=== PATIENT | male | born 1955 | race Caucasian/White ===

== ENCOUNTER 2018-11-09 07:46 | Observation (INO) | payer BC, MEDICARE ==
[2018-11-09] MEDS ORDERED: Pantoprazole 40 MG VIAL ONE (08:41)
[2018-11-09 08:57] LABS: #Lymphocytes 0.8 thou/uL (1.20-3.40); #Monocytes 0.2 thou/uL (0.11-0.59); %Basophils 0.5 % (0.0-1.0); %Eosinophils 0.7 % (0.0-10.0); %Lymphocytes 20.4 % (21.0-51.0); %Neutrophils 73.4 % (42.0-75.0); Hemoglobin 13.7 g/dL (14.0-18.0); Mean Corpuscular HGB CONC 33.4 g/dL (32.0-36.0); Mean Corpuscular Hemoglobin 30.7 pg (27.0-31.0); Mean Corpuscular Volume 92.1 fL (78.0-98.0); Mean Platelet Volume 7.9 fL (7.4-10.4); Platelet Count 81 thou/uL (130-400); Platelet Morphology Comment Appears Decreased; RBC Distribution Width 13.7 % (11.5-14.5); Red Blood Cell (RBC) Count 4.45 mill/uL (4.70-6.10); White Blood Cell (WBC) Count 4.1 thou/uL (4.8-10.8)
[2018-11-09 08:58] LABS: ALT (SGPT) 33 U/L (8-55); AST (SGOT) 43 U/L (5-34); Albumin 3.8 g/dL (3.4-4.8); Alkaline Phosphatase 98 U/L (40-150); Anion Gap 13 mmol/L (10-20); BUN (Urea Nitrogen) 19 mg/dL (8.4-25.7); Bilirubin, Total 2.2 mg/dL (0.2-1.2); Calc. Creatinine Clearance 0 mL/min (70-130); Calcium 8.6 mg/dL (7.8-10.44); Carbon Dioxide 22 mmol/L (23-31); Chloride 107 mmol/L (98-107); Estimated GFR-MDRD Greater than 90; Globulin 2.5 g/dL (2.4-3.5); Glucose 114 mg/dL (80-115); MDiff Complete? YES; Potassium 3.5 mmol/L (3.5-5.1); Protein, Total 6.3 g/dL (5.8-8.1); Sodium 138 mmol/L (136-145)
[2018-11-09] MEDS ORDERED: Pantoprazole 80 MG in Sodium Chloride 0.9% 100 ML IVP SCH (09:30)
[2018-11-09 09:59] LABS: INR-International Normal Ratio 1.2; PTT 30.7 SEC (22.9-36.1); Prothrombin Time 15.5 SEC (12.0-14.7)
[2018-11-09] MEDS ORDERED: Ondansetron ODT 4 MG TAB PO PRN (11:32)
[2018-11-09] MEDS ORDERED: Ondansetron PF 4 MG/2 ML Vial IVP PRN (11:32)
[2018-11-09] MEDS ORDERED: Benzonatate 100 MG CAP PO PRN (11:34)
[2018-11-09] MEDS ORDERED: Acetaminophen 325 MG TAB PO PRN (11:34)
[2018-11-09] MEDS ORDERED: Sodium Chloride 0.65% Nasal 44 ML BOT EA NARE PRN (11:34)
[2018-11-09] MEDS ORDERED: hydrALAZINE 20 MG/ML VIAL SLOW IVP PRN (11:34)
[2018-11-09] MEDS ORDERED: Acetaminophen 650 MG Suppository PR PRN (11:34)
[2018-11-09 11:40] VITALS: BMI 28.4
--- NOTE | 2018-11-09 12:28 | HP ---
CHIEF COMPLAINT: Blood in the colostomy bag. PRIMARY CARE PHYSICIAN: Kev Churchill MD. PRIMARY MICROBIOLOGY LABORATORY MANAGER: Dr. Duncan. HISTORY OF PRESENTING ILLNESS: Mr. Richards is a very pleasant 63-year-old male with history of coronary artery disease, status post stenting in 2014, as well as history of colon cancer multiple years ago, status post colostomy by Dr. Gee, who presented to the emergency room with above-mentioned complaint. History was mainly obtained by the patient himself, and electronical medical records have been reviewed. Case has been discussed with admitting ER physician. Mr. Richards reports that he had a colonoscopy last year by Dr. Duncan, and everything was found to be within normal limits. He denies having this much bleeding in the colostomy bag ever. He denies being on any blood thinners except for aspirin, which he has not taken for the last 2 days. He reports that he has 4 or 5 bags full of blood without any stools in the bag overnight and 1 or 2 this morning as well. He feels a little bit dizzy, but denies any diarrhea, nausea, or vomiting. He has not had any abdominal pain either. No changes in the appetite. No recent illnesses or sick contacts. No fever or chills. Denies any chest pain or shortness of breath either. In the emergency room, he was hemodynamically stable. He was a little bit tachycardic with his heart rate in the 103 to 104 ranges. Hemoglobin was 13.7, which seems to be at his baseline. He was started on Protonix drip and is now being admitted to the hospital on the observation status for GI bleed in the colostomy. The patient reports that Dr. Gee, his surgeon, has seen him briefly in the emergency room, and he was told that it is not a surgical case. PAST MEDICAL HISTORY: 1. History of colon cancer, status post colostomy, 12 or 15 years ago. 2. Hypertension. 3. Coronary artery disease, status post stenting in September 2015. PAST SURGICAL HISTORY: 1. Coronary artery stenting. 2. Colon cancer surgery with colostomy. 3. Right ACL repair. SOCIAL HISTORY: He is and lives with his . No history of drug, tobacco, or alcohol abuse. ALLERGIES: NO KNOWN MEDICATION ALLERGIES. FAMILY HISTORY: No significant family history of premature coronary artery disease. HOME MEDICATIONS: Include: 1. Aspirin 81 mg daily. 2. Atorvastatin 40 mg daily. 3. Carvedilol 12.5 mg p.o. b.i.d. 4. Lisinopril 10 mg daily. REVIEW OF SYSTEMS: A 12-point review of systems was done and is negative except for those mentioned in the History and Physical. LABORATORY DATA: A CBC shows WBCs 4.1, hemoglobin 13.7, hematocrit 41, and platelet count, low, at 81. His last platelet count done in September 2015 was also low at 73. His PT, PTT, and INR are within normal limits. Serum chemistry showed bicarb at 22, total bilirubin slightly elevated at 2.2, and AST at 43, otherwise unremarkable. PHYSICAL EXAMINATION: VITAL SIGNS: Upon presentation, blood pressure 130/105, pulse of 99, respirations 16, saturating 96% on room air, and temperature 98.1. GENERAL: No acute distress. Awake, alert, and oriented x3. HEENT: Mucous membrane is moist and pink. No oropharyngeal exudate or erythema. Head is normocephalic, atraumatic. Pupils are equal and reactive to light and accommodation. Extraocular movements intact. NECK: Supple without any lymphadenopathy, JVD, or bruit. CHEST: Clear to auscultation without any wheezing or rhonchi. Rhythm is regular without any murmurs, rubs, or gallops. ABDOMEN: Soft, nontender, and nondistended. His colostomy bag was emptied once in the emergency room and according to the nursing staff, he had a lot of blood in that bag. His stoma side shows about 4 to 5 cm horizontal opening with a clot to the entrance of the stoma. No erythema or swelling noted surrounding it. EXTREMITIES: Free of any cyanosis, clubbing, or edema. NEUROLOGICAL: Examination is nonfocal. SKIN: Free of any rashes or bruises. Feels warm and dry to touch. PSYCHIATRIC: Normal affect. IMPRESSION AND PLAN: 1. Gastrointestinal bleed. The patient has a total of about 4 to 5 colostomy bags, full of bright red blood. He did have a normal colonoscopy about 1 year ago. The source of this new bleeding is unclear at this time. We will continue him on Protonix drip and request consultation with Gastroenterology. Reportedly, he was seen by Dr. Gee in the emergency room, and no new recommendation was provided surgically. He is thankfully hemodynamically stable at this time. We will start him on gentle IV fluids and recheck H and H every few hours. Further management as per the recommendation of the GI Team. He will be kept n.p.o. for now. 2. History of coronary artery disease. We will hold his home medications until he was cleared to take oral intake by the GI Team. 3. History of hypertension: Start him on p.r.n. IV antihypertensives. 4. History of colon cancer, status post colostomy. 5. Deep venous thrombosis and gastrointestinal prophylaxis. He is on Protonix drip, and we will add SCDs. DISPOSITION: Mr. Richards is currently being admitted under observation status for GI bleed in the colostomy bag. He is hemodynamically stable with a stable H and H. Further management will depend upon his clinical course. If he becomes unstable, he can be changed to inpatient status later on. Job ID: [id number]
[2018-11-09] MEDS: Sodium Chloride 0.9% 1,000 ML IV SCH (12:58)
[2018-11-09 13:38] LABS: Hemoglobin 12.9 g/dL (14.0-18.0)
[2018-11-09] MEDS ORDERED: PROPOFOL 200 MG/20 ML VIAL ONE (13:43)
[2018-11-09] MEDS ORDERED: Lidocaine 1% PF 5 ML VIAL ONE (13:43)
[2018-11-09] MEDS ORDERED: Octreotide Acetate 1,250 MCG in Sodium Chloride 0.9% 250 ML 250 ML IVPB SCH (15:15)
[2018-11-09] MEDS ORDERED: cefTRIAXone\\ROCEPHIN 1 GM VIAL ONE (15:47)
[2018-11-09] MEDS ORDERED: Fentanyl 100 MCG/2 ML VIAL ONE (15:53)
[2018-11-09] MEDS ORDERED: Meperidine HCl/PF 25 MG/ML VIAL SLOW IVP PRN (16:52)
[2018-11-09] MEDS ORDERED: HYDROmorphone 2 MG/ML VIAL SLOW IVP PRN (16:52)
[2018-11-09] MEDS ORDERED: Promethazine HCl 25 MG/ML VIAL SLOW IVP PRN (16:52)
[2018-11-09] MEDS ORDERED: Promethazine HCl 25 MG/ML VIAL IM PRN (16:52)
[2018-11-09] MEDS ORDERED: Ondansetron HCl/PF 4 MG/2 ML Vial IVP PRN (16:52)
[2018-11-09] MEDS ORDERED: Sodium Chloride 0.9% 100 ML ONE (17:45)
[2018-11-09] MEDS: cefTRIAXone\\ROCEPHIN 1 GM in Sodium Chloride 0.9% 100 ML IVPB SCH (18:09)
--- NOTE | 2018-11-10 00:17 | OP ---
DATE OF PROCEDURE: 11/09/2018 PREPROCEDURE DIAGNOSES: 1. Gastrointestinal bleed from ostomy site. 2. History of colorectal cancer, status post resection with anorectal anastomosis, previous radiation therapy with stricturing with ultimately formation of a double-barrel loop transverse colostomy. 3. History of portal hypertension, cirrhosis, reportedly from chemotherapy treatments related to his colon cancer several years ago. He has had varices banded prophylactically as there were red antonio signs, but he has had no gross bleeding in the past. ANESTHESIA: TIVA. POSTPROCEDURE DIAGNOSES: 1. Grade 3 esophageal varices, two columns in the distal esophagus with red antonio signs, but no stigmata of recent or active bleeding. These were banded prophylactically with the red antonio signs present x2 with complete ablation. 2. Portal hypertensive gastropathy with slight oozing, but not much. I do not think this accounts for the patient's ostomy bleeding as that was more bright red and maroon. 3. Possible slight varices just below the GE junction along the greater curve side with no stigmata of bleeding. 4. Small erosion in the duodenal bulb, nonbleeding, white base. 5. A colostomy via his ostomy was performed down both the afferent and efferent limbs. The efferent limb was clear with no blood, bile, or stool. The afferent limb showed yellow stool, it has been about 4 cm. No blood. The tissue at the ostomy anastomosis to the skin is friable. There were some prominent veins or venules. There was no overt large varicose veins seen, but again, my main concern is this may have been a peristomal bleed from peristomal varices. RECOMMENDATIONS: 1. Continue IV octreotide. 2. Change IV Protonix to q.12 hours. 3. Continue IV Rocephin q.24 hours. 4. I will talk with Hepatology in [place] in regard to possible further evaluation and imaging to evaluate for possible peristomal varices that are not grossly obvious to the eye. DESCRIPTION OF PROCEDURE: The patient was informed of the risks, benefits, and possible complications of endoscopy including perforation, reaction to medication, and aspiration, and informed consent was obtained. The patient was brought to the endoscopy suite, where he was sedated in gradual fashion. Once he was comfortable, a bite block was placed into his oropharynx. The endoscope was advanced to the esophagus, stomach, and second and third portion of the duodenum and slowly removed. The esophagus was notable for grade 3 varices, two columns in the distal esophagus with red antonio signs, but no prominent clot or signs of active bleeding or blood. The scope was then advanced beyond this into the stomach. Retroflexed views revealed some GOV1 type varices very small, but no stigmata of bleeding, just below the GE junction. There was no isolated cardiac or gastric varices. There were some portal gastropathy, grade 3 that was not overly oozing, but is throughout most of the body of the stomach, cardia, and antrum. There were no bleeding sites identified. The duodenal bulb was entered and found to be normal except for one small 3 mm erosion white based on bleeding. No visible vessel present. The duodenum in the distal third and fourth portions were normal with no evidence of varices or blood seen. The scope was then brought back to the esophagus, then removed. Banding ligator kit applied and two bands placed over that two columns of varices in the distal esophagus with complete ablation. The scope was removed. The patient tolerated the procedure well with no complications. The patient was returned to the room and examination to the ostium with the ostomy bag off was performed. There was no overt large varices, but there were some vessels that were somewhat prominent in this area, mainly very superficially. The granulation tissue had a little bit of blood on it, but when we washed that off, there was no bleeding sites or vessels seen. The operative scope was then advanced through the ostomy into the efferent limb. Then, it was advanced about 20 cm with no contents of the lumen. No stigmata of bleeding. No varices, no inflammation and no portal colopathy. We then evaluated the afferent limb, the limb coming down from the small bowel and this had some formed stool, yellow with no blood and again no signs of varices or stigmata of bleeding. I suspect the bleeding that occurred in his ostomy bag came from the ostomy site itself and it could have been from his granulation tissue, but I am concerned it could be related to portal hypertension. Plan as above. Job ID: [id number]
[2018-11-10 05:58] LABS: Anion Gap 13 mmol/L (10-20); BUN (Urea Nitrogen) 13 mg/dL (8.4-25.7); Calc. Creatinine Clearance 111 mL/min (70-130); Calcium 7.8 mg/dL (7.8-10.44); Carbon Dioxide 21 mmol/L (23-31); Chloride 108 mmol/L (98-107); Estimated GFR-MDRD Greater than 90; Glucose 99 mg/dL (80-115); Potassium 3.7 mmol/L (3.5-5.1); Sodium 138 mmol/L (136-145)
[2018-11-10 06:41] LABS: #Lymphocytes 0.7 thou/uL (1.20-3.40); #Monocytes 0.2 thou/uL (0.11-0.59); #Neutrophils 1.2 thou/uL (1.40-6.50); %Basophils 0.8 % (0.0-1.0); %Eosinophils 1.7 % (0.0-10.0); %Lymphocytes 33.5 % (21.0-51.0); %Monocytes 8.4 % (0.0-10.0); %Neutrophils 55.6 % (42.0-75.0); Hemoglobin 11.7 g/dL (14.0-18.0); Mean Corpuscular HGB CONC 33.2 g/dL (32.0-36.0); Mean Corpuscular Volume 93.3 fL (78.0-98.0); Mean Platelet Volume 7.5 fL (7.4-10.4); Platelet Count 49 thou/uL (130-400); Platelet Morphology Comment Appears Decreased; RBC Distribution Width 13.6 % (11.5-14.5); RBC Morphology Normal; Red Blood Cell (RBC) Count 3.76 mill/uL (4.70-6.10); White Blood Cell (WBC) Count 2.2 thou/uL (4.8-10.8)
[2018-11-10] MEDS: Sodium Chloride 0.9% 1,000 ML IV SCH (07:18)
[2018-11-10] MEDS ORDERED: Aspirin Chewable 81 MG TAB PO SCH (09:00)
[2018-11-10] MEDS ORDERED: Carvedilol 6.25 MG TAB PO SCH (09:00)
[2018-11-10] MEDS ORDERED: Pantoprazole 40 MG VIAL IVP SCH (09:00)
[2018-11-10] MEDS ORDERED: Lisinopril 10 MG TAB PO SCH (09:00)
--- NOTE | 2018-11-10 10:19 | CT ---
CT OF THE ABDOMEN AND PELVIS WITH IV CONTRAST: Date: 11/10/18 INDICATION: History of colon cancer with drop in hemoglobin. COMPARISON: CT abdomen with and without contrast dated 04/05/06. FINDINGS: There are three new hypodensities within segment of the right hepatic lobe measuring 1.4, 0.7, and 1.1 cm, respectively, on images 21 and 22 of series 2. There has been development of a cirrhotic morphology to the liver. There is recanalization of the umb ilical vein. There are numerous varicosities within the paraesophageal region and perisplenic region. The spleen is enlarged. There is scattered free fluid within the abdomen consistent with ascites. There is a diverting loop colostomy involving the right upper quadrant of the abdomen. There are a fe w mildly prominent vessels within the stoma, likely related to mild parastomal varicosities. The visualized colon is largely decompressed with scattered diverticula. There is a colorectal anasto mosis within the lower abdomen which reveals no definite acute abnormality. There is some mild edema seen within the presacral region and mild soft tissue thickening which may be related to prior therap y changes. Bladder is largely decompressed. The small bowel is of normal caliber. There are moderate calcifications involving the abdominal aorta. No pathologically enlarged lymph nod es are seen within the upper abdomen or retroperitoneum. There is a mildly prominent third stage duod enal diverticulum measuring 3.5 cm on image 31 of series 2. There is a fat-containing umbilical hernia. No definite suspicious acute osseous abnormality is evident. IMPRESSION: 1. Cirrhotic morphology of the liver with findings of portal hypertension and mild ascites. 2. Mild parastomal varicosities involving the right upper quadrant loop colostomy without evidence o f active extravasation. 3. New hypodensities within the right hepatic lobe with a background of cirrhosis are nonspecific, b ut could reflect changes of hepatocellular carcinoma. A follow-up MRI of the abdomen utilizing a live r mass protocol is recommended. 4. Findings of colorectal anastomosis within the lower pelvis with presacral soft tissue thickening and edema may reflect sequelae of prior radiation therapy. Recommend correlation with patient's treat ment record. 5. Other findings as above. POS: CET
[2018-11-10 12:54] VITALS: BP 139/90; TEMP 98.3
[2018-11-10] MEDS: cefTRIAXone\\ROCEPHIN 1 GM in Sodium Chloride 0.9% 100 ML IVPB SCH (14:33)
[2018-11-10] MEDS ORDERED: ISOVUE-370 76%-LOCM 1 ML ONE (16:52)
--- NOTE | 2018-11-10 17:55 | PRG ---
DATE OF SERVICE: SUBJECTIVE: Mr. Richards has had no bleeding overnight. He is not eating because he wants to go home and eat at home. He did have a CAT scan with contrast today that showed cirrhotic morphology of the liver with recanalization of the umbilical vein and numerous varicosities in the paraesophageal region and perisplenic region. The spleen is enlarged. There is a little bit of free fluid consistent with ascites, but no large cavities. He had a diverting loop ostomy of right upper quadrant where the colon is and there were some mild prominent vessels within the stoma, likely mild parastomal varicosities. The colon was otherwise decompressed. There is some thickening of the sigmoid colon consistent with previous radiation therapy. The small bowel is normal and there was no active bleeding seen on that study. Hemoglobin has been stable today. It was 13.7 at 8 a.m. yesterday, 12.9 yesterday at 1300, and it was 11.7 this morning. He has no fever or chills. No nausea or vomiting. We did band 2 columns of grade 3 varices with red antonio sign in his esophagus, but they were not the source of bleeding. He also had some portal gastropathy. OBJECTIVE: GENERAL: He is alert and oriented to person, place, and time. VITAL SIGNS: Temperature is 98.7, pulse 73, and blood pressure 139/90. LUNGS: Clear. ABDOMEN: Soft and nontender. There is slight fluid wave. No shifting dullness. LABORATORY DATA: White count 3.2, hemoglobin 11.7, and platelet count 49,000. INR was 1.2 yesterday. Today, BUN and creatinine are 13 and 0.82. Sodium 139 and potassium 3.7. ASSESSMENT: 1. Gastrointestinal bleed, likely from parastomal varices. It has resolved. I have talked with Dr. Smith's fellow at the [facility] at [facility] and she would be willing to see him next week to discuss more definitive therapy, would that be embolization or TIPS. He wants to go home. I have counseled him in regard to bleeding risk and if he has any bleeding, he will need to return. I have told him to hold pressure at the ostomy site until he does return. In the meantime, we are going to place him on some Protonix once a day. We are going to increase his carvedilol to 6.25 mg b.i.d. and we will continue his other home medications. Stop his baby aspirin and stop his Advil PM. 2. He did have 3 small lesions in the liver, hypodense, all less than 1.7 cm in size. He states that they were 1.4, 0.7, and 1.1 cm in the right lower lobe. He notes that these had been noted previously at [facility] and had been followed. He did have a normal AFP in April of 2018 and a normal ultrasound then, and I have explained to him that this will need to be followed with a three phase imaging of the liver with hepatoma protocol and he understands that. PLAN: We will discharge him on the increased dose of carvedilol, PPI, and 5 more days of Levaquin for SBP prophylaxis and amount of the GI bleed. He has Dr. Smith's phone number and he will call them tomorrow and get that arranged. He has my phone number if he has further bleeding. I have asked him to stand a low-sodium diet. Otherwise, resume his home medications. His prescriptions have been called in. Job ID: [id number]
--- NOTE | 2018-11-10 18:03 | DIS ---
DATE OF ADMISSION: 11/09/2018 DATE OF DISCHARGE: 11/10/2018 CONDITION: At the time of discharge, stable and improved. DISCHARGE DIAGNOSES: 1. Bleeding from the colostomy site, likely due to varices. 2. History of colorectal cancer, status post resection and anorectal anastomosis, radiation therapy and colostomy. 3. 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 4. Hypertension. 5. Coronary artery disease. DISCHARGE MEDICATIONS: Resume home medications as per the HPI. New medications as follows; 1. Protonix 40 mg daily. 2. Levofloxacin 500 mg daily for 7 more days. Home medications; 1. Coreg 6.25 p.o. b.i.d. 2. Lisinopril 10 mg daily. 3. Atorvastatin 40 mg daily. 4. Aspirin has been taken off. IN-HOUSE CONSULTATION: Gastroenterology, Dr. Jean. PROCEDURES DONE IN THE HOSPITAL: 1. EGD and ostomy scope. Findings included grade 3 esophageal varices, which were banded prophylactically, as well as portal hypertensive gastropathy with slight oozing. Possible slight varices just below the gastroesophageal junction. The colonoscopy via his ostomy site was also performed by Dr. Jean and though there was no obvious bleeding, but the skin was friable. No overt large varicose veins were seen, but the concern remains that he had a peristomal bleed from peristomal varices. 2. CT scan of the abdomen and pelvis, which shows cirrhosis of the liver with portal hypertension, mild ascites, and mild parastomal varicosities involving the right upper quadrant loop colostomy without evidence of active extravasation. New hypodensities within the right hepatic lobe were seen, which could reflect changes of hepatocellular carcinoma. Colorectal anastomosis had some thickening and edema, which may reflect sequelae of prior radiation therapy. HISTORY OF PRESENTING ILLNESS: Mr. Richards is a very pleasant 63-year-old male with history of colon cancer about 12 years ago, status post colostomy, who is a patient of [facility], who presented after he started to notice multiple colostomy bags full of bright red blood. He had some dizziness associated with it and presented to the ER. His hemoglobin upon presentation was stable at 13.7, and he was himself stable as well. He was noticed to have low platelet count of 81, which seems to be chronic for him. Gastroenterology was consulted. Please see H and P for details. HOSPITAL COURSE: Dr. Jean saw the patient. His bleeding stopped spontaneously. He was started on Protonix drip initially and octreotide drip, and prophylactic Rocephin was added by Dr. Jean. He underwent a scope as above, followed by a CT scan. He was very eager to go and his hemoglobin and hematocrit were stable, and was cleared by Dr. Jean as no further procedures were required during hospitalization. He has been strongly instructed by Dr. Jean to follow up with a transportation officer in [place] regarding further evaluation and imaging of possible peristomal varices. The patient would get this done in the outpatient setting. His discharge hemoglobin is 11.7. He is hemodynamically stable. He was seen and examined prior to discharge. His vital signs are stable. Blood pressure 139/90, heart rate 73. No acute distress. Colostomy bag has soft, formed brown stool without any evidence of blood in it. The patient will be discharged. Medications were reconciled, and prescription for Levaquin and Protonix was given to him by Dr. Jean. He was also taken off his aspirin by Dr. Jean. He will follow up with Dr. Claude Duncan in the GI clinic in the outpatient setting, who is his primary parts counter associate, as well as with his primary care physician. PRIMARY CARE PHYSICIAN: Dr. Kev Churchill. Job ID: [id number]
[2018-11-10] MEDS ORDERED: Atorvastatin Calcium 40 MG TAB PO SCH (21:00)
--- NOTE | 2018-11-11 06:31 | CON ---
DATE OF CONSULTATION: 11/09/2018 REASON FOR CONSULTATION: Bleeding in ostomy. HISTORY OF PRESENT ILLNESS: Mr. Berg is a 63-year-old gentleman, who has remote history of rectal cancer about 16 years ago. He had a resection at that time and radiation chemotherapy, but had recurrent strictures and bleeding from the anastomosis area and ultimately had a resection of that and then diverting colostomy. Intermittently, he has had some bleeding at the ostomy site, but yesterday evening, he noticed he is having some blood in the ostomy bag and it was pretty bright red, tend to clot, it fill about 5 bags, so he came into the hospital. He did not really feel weak or dizzy. His hemoglobin was 13.7 at 8:30 when he came in. His hemoglobin was 14 in 09/2015. His hemoglobin was 12.9 on 10/17/2018. His platelets are low at 81,000 and white counts are low at 41,000. He notes a history of cirrhosis related to his previous chemotherapy and he has had varices, which had been prophylactically banded by Dr. Duncan, it does not seem like there were any bleeding varices. This was done at the recommendation of MD Jade. His INR is 1.2. He denies any other complications of cirrhosis in the past such as ascites or encephalopathy. He does not recall having any bleeding varices. Presently, he has had no blood output, everything seems to have stopped since admission. He has no associated abdominal pain or cramps. Most recently, he had a colonoscopy last with Dr. Duncan and everything was found to be within normal limits. He has been taking aspirin, which he usually takes daily, but has not for 2 days, he had a little bit of bleeding couple days ago. He also takes Aleve PM once at night. He reports his last EGD was about 2 years ago when he had some banding of the varices in the esophagus. In the emergency room, he did have some tachycardia when he first presented with a pulse of 103 to 104, but did not feel weak or tired. PAST MEDICAL HISTORY: 1. Colorectal cancer 16 years ago with resection of colorectal anastomosis, but ultimately this was takedown with a diverting colostomy secondary to complications of radiation treatment. 2. Hypertension. 3. Coronary artery disease, previous stenting in 2014. 4. Knee surgery. 5. Cataract surgery. 6. Coronary stenting. 7. Medical issues, hypertension. SOCIAL HISTORY: The patient is , lives with his . He does not smoke or use drugs. ALLERGIES: NONE KNOWN. FAMILY HISTORY: Negative for colon cancer or liver disease. HOME MEDICATIONS: 1. Aspirin. 2. Atorvastatin. 3. Lisinopril. 4. Carvedilol. 5. Occasional Aleve or ibuprofen PM. REVIEW OF SYSTEMS: Negative for chest pain, shortness of breath, dyspnea on exertion, nausea, vomiting, and fever. CURRENT MEDICATIONS: Medications here; 1. Tylenol. 2. Rocephin. 3. Zofran p.r.n. 4. Protonix drip. 5. There is a normal saline at 70 an hour. PHYSICAL EXAMINATION: GENERAL: He is alert and oriented to person, place, and time. Mr. Richards is resting comfortably in bed. HEENT: Mucous membranes are pink and moist. There is no evidence of spider angioma on the chest. There is no scleral icterus. VITAL SIGNS: Temperature is 97.9, pulse 94, blood pressure 142/89, and respirations 16. LUNGS: Clear. HEART: Regular rate and rhythm without clicks or murmurs. ABDOMEN: Soft and nontender. Ostomy bag is removed. Ostomy still retracted. He has some friable tissue and granulation tissue definitely at the anastomosis, but there is no overt evidence of varix or clot. No active bleeding. There is a little bit of stool, but not much on the digital exam there. EXTREMITIES: No clubbing, cyanosis, or edema. NEUROLOGIC: There is no asterixis. The patient is alert and oriented to person, place, and time. LABORATORY DATA: Sodium 138, potassium 3.5, BUN and creatinine 19 and 0.84. Bilirubin is 2.2, AST is 43, ALT is 33, and alkaline phosphatase is 98. Reviewing previous pathology from 02/11/2018, he had a hyperplastic polyp near the ostomy site, but that was it on pathology. he had gastritis. On gastric biopsy, no H. pylori. ASSESSMENT: 1. A 63-year-old gentleman with a history of cirrhosis, portal hypertension with thrombocytopenia and splenomegaly. He has had previous prophylactic banding of esophageal varices, but never what sounds like a gastrointestinal bleed from them. He is now presented with increased bloody output through his left lower quadrant colostomy. There does not appear to be any overt peristomal varices, although this would be in the differential diagnosis there. He did not have any nausea or vomiting, and does not have elevated BUN to suggest upper gastrointestinal bleeding, but definitely history of gastric esophageal varices should be considered in the differential diagnosis of this bleed with his cirrhosis. He has been taking nonsteroidal anti-inflammatory drugs and this may have led to some problem to granulation tissue that bled or NSAID-related erosion or ulcer in the colon. But again, we have to probably assume first this is portal hypertension related. His hemoglobin is stable at this point in time and repeat hemoglobin has not dropped much. 2. History of colorectal cancer with no evidence of recurrence on recent colonoscopy this summer. 3. History of coronary artery disease with previous stent placement on daily aspirin. RECOMMENDATIONS: 1. We would start Rocephin for prophylactic antibiotics, GI bleed in the cirrhotic. 2. We will start octreotide drip with GI bleeding, cirrhotic, and known portal hypertension. 3. We will stop the Protonix drip. 4. Proceed with upper endoscopy today and possibly colonoscopy via the ostomy depending on how much blood or stools are there once we get him sedated. We can definitely look and make sure that we do not see overt evidence of peristomal varices. The risks, benefits, and possible complication of endoscopy including perforation, reaction to medication and aspiration, rash octreotide, antibiotics, and urgent endoscopy today were discussed with the patient, he wished to proceed. Job ID: [id number]
== END 2018-11-10 15:29 | disposition home or self-care (01) ==
LOC: ERS 07:46 → 2SW 11:05
PROVIDERS: ADMIT Internal Medicine; ATTEND Internal Medicine Gastroenterology
PROC: 06L38CZ Occlusion of Esophageal Vein with Extraluminal Device, Via Natural or Artificial Opening Endoscopic (ICD-10-PCS; principal; 2018-11-09)
PROC: 0DJD8ZZ Inspection of Lower Intestinal Tract, Via Natural or Artificial Opening Endoscopic (ICD-10-PCS; 2018-11-09)
DX: K94.01 Colostomy hemorrhage (principal); I85.00 Esophageal varices without bleeding; K76.6 Portal hypertension; K31.89 Other diseases of stomach and duodenum; K26.9 Duodenal ulcer, unspecified as acute or chronic, without hemorrhage or perforation; K76.89 Other specified diseases of liver; I10 Essential (primary) hypertension; I25.10 Atherosclerotic heart disease of native coronary artery without angina pectoris; Z85.038 Personal history of other malignant neoplasm of large intestine; Z95.5 Presence of coronary angioplasty implant and graft; Z92.21 Personal history of antineoplastic chemotherapy; Z79.2 Long term (current) use of antibiotics; Z79.82 Long term (current) use of aspirin; Z79.899 Other long term (current) drug therapy; Z98.890 Other specified postprocedural states
CPT/HCPCS: 43244; 44388; 74177; 80048; 80053; 82105; 85014; 85018; 85025 ×2; 85610; 85730; 86850 ×2; 86900; 86901; 96365; 96366 ×2; 96367; 96375; 96376 ×2; 99284; G0378; 36415; C9113; J0696; J2001; J2354; J2704; J3010; J7050; Q9966

== ENCOUNTER 2020-03-02 11:16 | Outpatient (CLI) | payer MEDICARE ==
--- NOTE | 2020-03-02 15:28 | MRI ---
MR OF THE ABDOMEN WITH AND WITHOUT IV CONTRAST 03/02/20 INDICATION: 65-year-old male with history of colon cancer status post radiation therapy to the abdomen inducing c irrhosis of the liver. COMPARISON: Prior CT of the abdomen and pelvis dated 11/10/18 from [facility]. TECHNIQUE: Multiplanar and multisequence MR images were obtained of the abdomen utilizing liver mass protocol an d 20 mL of Multihance. FINDINGS: Mild respiratory motion artifact limits image detail on the exam. Corresponding to one of the hypoden sities seen within segment of the right hepatic lobe on the comparison examination is a T2 hyperin tense, nonenhancing cyst measuring 1.5 cm. An additional smaller cyst is seen within the right hepati c dome measuring 5mm. No suspicious arterial enhancing lesion is evident. There is a cirrhotic morpho logy of the liver with recanalization of the umbilical vein. There are prominent varicosities seen ne ar the distal esophagus. The spleen is enlarged measuring 16.2 cm. There is a small subcentimeter cys t seen within the right kidney. No free fluid is identified. No enlarged lymph nodes are evident. The re is a right mid abdominal colostomy. No bone marrow signal abnormality is evident. Adrenal glands, and visualized pancreas appear within normal limits. The gallbladder is slightly under distended and folded. There is very mild gallbladder wall thickening. IMPRESSION: 1. Findings of cirrhosis with portal hypertension. 2. Right hepatic lobe cysts. 3. No suspicious hepatic lesion identified. POS: [facility]
== END 2020-03-02 11:17 | disposition home or self-care (01) ==
LOC: MRI 11:16
PROVIDERS: ATTEND Internal Medicine Gastroenterology
DX: K74.60 Unspecified cirrhosis of liver (principal); K76.89 Other specified diseases of liver; K76.6 Portal hypertension
CPT/HCPCS: 74183

== ENCOUNTER 2020-10-22 07:28 | Outpatient (CLI) | payer MEDICARE ==
--- NOTE | 2020-10-22 08:36 | ULT ---
Sonogram abdomen complete HISTORY: Cirrhosis. Abdominal sonogram complete Abdominal duplex sonogram HISTORY: Cirrhosis. FINDINGS: No stones evident within the gallbladder lumen. Gallbladder wall thickening of 0.5 cm nonsp ecific in the setting of chronic liver disease and a small amount of free fluid. Liver is heterogeneous with a nodular contour. No focal mass or intrahepatic biliary dilatation. Spleen measures up to 17.9 cm length. No focal abnormality. Kidneys are without hydronephrosis. No focal mass evident. The IVC, pancreas, and abdominal aorta are mostly obscured by bowel gas. Good color and spectral Doppler flow within the hepatic and splenic arteries. Portal venous flow is t owards the liver. Hepatic veins not well visualized due to patient size. IMPRESSION : Cirrhotic appearance of the liver. Findings of portal venous hypertension include severe splenomegaly and small volume ascites. Appropriate directional portal venous flow.
== END 2020-10-22 07:29 | disposition home or self-care (01) ==
LOC: BICULT 07:28
DX: K74.69 Other cirrhosis of liver (principal); K76.6 Portal hypertension; R16.1 Splenomegaly, not elsewhere classified; R18.8 Other ascites
CPT/HCPCS: 93975

== ENCOUNTER 2021-11-18 08:32 | Outpatient (CLI) | payer MEDICARE ==
[2021-11-18] MEDS ORDERED: Magnevist 469MG/ML 20 ML VIAL ONE (10:31)
== END 2021-11-18 08:33 | disposition home or self-care (01) ==
LOC: MRI 08:32
PROVIDERS: ATTEND Internal Medicine Gastroenterology
DX: R16.0 Hepatomegaly, not elsewhere classified (principal); K74.60 Unspecified cirrhosis of liver; I85.00 Esophageal varices without bleeding; K76.6 Portal hypertension; Z85.038 Personal history of other malignant neoplasm of large intestine
CPT/HCPCS: 74183; A9579

== ENCOUNTER 2022-06-20 08:46 | Outpatient (CLI) | payer OTHER | END 2022-06-20 08:47 | disposition home or self-care (01) | LOC: MRI 08:46 → TBSIIMAG 08:47 | PROVIDERS: ATTEND Internal Medicine Gastroenterology | DX: K74.60 Unspecified cirrhosis of liver (principal); I85.10 Secondary esophageal varices without bleeding; D49.0 Neoplasm of unspecified behavior of digestive system; K76.6 Portal hypertension; R16.1 Splenomegaly, not elsewhere classified | CPT/HCPCS: 74183 ==

== ENCOUNTER 2023-01-04 08:24 | Outpatient (CLI) | payer OTHER | END 2023-01-04 08:25 | disposition home or self-care (01) | LOC: MRI 08:24 | PROVIDERS: ATTEND Internal Medicine Gastroenterology | DX: D64.9 Anemia, unspecified (principal); I85.00 Esophageal varices without bleeding; R16.0 Hepatomegaly, not elsewhere classified; D49.0 Neoplasm of unspecified behavior of digestive system; K74.60 Unspecified cirrhosis of liver; K86.2 Cyst of pancreas | CPT/HCPCS: 74183 ==

== ENCOUNTER 2023-08-07 07:44 | Outpatient (CLI) | payer OTHER | END 2023-08-07 07:45 | disposition home or self-care (01) | LOC: BICMRI 07:44 | PROVIDERS: ATTEND Internal Medicine Gastroenterology | DX: D49.0 Neoplasm of unspecified behavior of digestive system (principal); K74.60 Unspecified cirrhosis of liver; D64.9 Anemia, unspecified; I85.00 Esophageal varices without bleeding; R16.0 Hepatomegaly, not elsewhere classified; K86.2 Cyst of pancreas; K76.6 Portal hypertension | CPT/HCPCS: 74183; 82565 ==

== ENCOUNTER 2024-03-28 09:22 | Outpatient (CLI) | payer OTHER ==
[2024-03-28] MEDS ORDERED: Magnevist 469MG/ML 20 ML VIAL ONE (12:29)
== END 2024-03-28 09:23 | disposition home or self-care (01) ==
LOC: MRI 09:22
PROVIDERS: ATTEND Internal Medicine Gastroenterology
DX: K74.60 Unspecified cirrhosis of liver (principal); I85.00 Esophageal varices without bleeding; D01.7 Carcinoma in situ of other specified digestive organs; K76.6 Portal hypertension; R16.0 Hepatomegaly, not elsewhere classified; K76.89 Other specified diseases of liver; K86.2 Cyst of pancreas
CPT/HCPCS: 74183; 82565

== ENCOUNTER 2025-04-03 17:53 | Inpatient (IN) | payer OTHER, MEDICARE ==
[~2025-04-03 17:53] MED LIST: Iopamidol-370 76% 500 ML MDV (1 ML CHARGE) ONE
[2025-04-03] MEDS ORDERED: Sodium Chloride 0.9% 100 ML ONE (18:14)
[2025-04-03] MEDS ORDERED: Acetaminophen 325 MG TAB ONE (18:14)
[2025-04-03] MEDS ORDERED: Cefepime 2 GM VIAL ONE (18:14)
[2025-04-03 18:55] LABS: Hematocrit 34.2 % (42.0-52.0); Hemoglobin 11.1 g/dL (14.0-18.0); Mean Corpuscular HGB CONC 32.5 g/dL (32.0-36.0); Mean Corpuscular Volume 86.1 fL (78.0-98.0); Mean Platelet Volume 9.3 fL (7.4-10.4); Platelet Count 43 10x3/uL (130-400); RBC Distribution Width 16.6 % (11.5-14.5); Red Blood Cell (RBC) Count 3.97 mill/uL (4.70-6.10); White Blood Cell (WBC) Count 0.52 10x3/uL (4.8-10.8)
[2025-04-03 19:02] LABS: Bacteria/HPF None Seen HPF (None Seen); Bilirubin Negative (Negative); Blood, Urine Trace (Negative); CAUTI Indications for Culture Fever or rigors; Clarity Clear (Clear); Glucose, Urine (Dipstick) Normal (Negative); Ketone, Urine Negative (Negative); Leukocyte Negative Leu/uL (Negative); Nitrite Negative (Negative); Protein, Urine (Dipstick) Negative (Neg-Trace); RBC/HPF 0-3 HPF (0-3); Specific Gravity, Urine 1.008 (1.002-1.036); Squamous Epithelial None Seen HPF (0-3); Urobilinogen Normal mg/dL (Less than 2); WBC/HPF 0-3 HPF (0-3)
[2025-04-03 19:06] LABS: Urine Culture Reflex No No
[2025-04-03] MEDS ORDERED: VANCOMYCIN 2 GRAM/400 ML BAG ONE (19:22)
[2025-04-03 19:23] LABS: ALT (SGPT) 25 U/L (Less than 45); AST (SGOT) 40 U/L (11-34); Alkaline Phosphatase 108 U/L (40-110); Anion Gap 14 mmol/L (10-20); BUN (Urea Nitrogen) 13 mg/dL (8.4-25.7); Bilirubin, Total 2.7 mg/dL (0.3-1.2); Calc. Creatinine Clearance 0 mL/min (70-130); Calcium 8.2 mg/dL (7.8-10.44); Carbon Dioxide 21 mmol/L (23-31); Chloride 108 mmol/L (98-107); Estimated GFR 92; Globulin 3.3 g/dL (2.4-3.5); Glucose 96 mg/dL (83-110); Lipase 22 U/L (8-78); Magnesium 1.4 mg/dL (1.6-2.6); Potassium 3.7 mmol/L (3.5-5.1); Protein, Total 6.3 g/dL (5.8-8.1); Sodium 139 mmol/L (136-145)
[2025-04-03 19:24] LABS: Band 20 % (5-11); Burr Cells SLIGHT = 2-5 cells HPF (0-1); Eosinophils 1 % (0-10); Large Platelets 2.2 % (0-5); Lymphocytes 22 % (21-51); Monocytes 1 % (0-10); Neutrophil 54 % (42-75); Platelet Adequacy Comment Platelets Decreased; Polychromasia SLIGHT = 2-3 cells HPF (0-2); Reactive Lymphocytes 1 % (0-10)
[2025-04-03] MEDS ORDERED: metroNIDAZOLE 500 MG (100 mL) BAG ONE (23:06)
[2025-04-03] MEDS ORDERED: Magnesium 2 GM/50 ML BAG (IN WATER) ONE ×2 (23:06→23:11)
[2025-04-03] MEDS ORDERED: Ondansetron PF 4 MG/2 ML Vial IVP PRN (23:07)
[2025-04-03] MEDS ORDERED: Acetaminophen 500 MG TAB PO PRN (23:11)
[2025-04-03] MEDS ORDERED: Sodium Chloride 0.9% 1,000 ML IV SCH (23:30)
[2025-04-04 00:26] LABS: Lactic Acid 3.13 mmol/L (0.50-2.20)
[2025-04-04] MEDS ORDERED: Acetaminophen 500 MG TAB ONE (00:59)
[2025-04-04] MEDS ORDERED: Metoprolol Tartrate 5 MG (5 mL) VIAL ONE (00:59)
[2025-04-04] MEDS ORDERED: Albumin 25% 100 ML ONE (01:32)
[2025-04-04 03:15] VITALS: BMI 25.2
[2025-04-04 03:33] LABS: Hematocrit 29.1 % (42.0-52.0); Hemoglobin 9.1 g/dL (14.0-18.0); Mean Corpuscular HGB CONC 31.3 g/dL (32.0-36.0); Mean Corpuscular Hemoglobin 27.8 pg (27.0-31.0); Mean Platelet Volume 9.7 fL (7.4-10.4); Platelet Count 33 10x3/uL (130-400); RBC Distribution Width 16.9 % (11.5-14.5); Red Blood Cell (RBC) Count 3.27 mill/uL (4.70-6.10); White Blood Cell (WBC) Count 3.03 10x3/uL (4.8-10.8)
[2025-04-04] MEDS: Lactated Ringer's 1,000 ML IV SCH (03:46)
[2025-04-04 03:51] LABS: Lactic Acid 2.79 mmol/L (0.50-2.20)
[2025-04-04 03:52] LABS: ALT (SGPT) 22 U/L (Less than 45); AST (SGOT) 35 U/L (11-34); Albumin 2.7 g/dL (3.1-4.5); Alkaline Phosphatase 70 U/L (40-110); Anion Gap 13 mmol/L (10-20); BUN (Urea Nitrogen) 14 mg/dL (8.4-25.7); Bilirubin, Total 3.2 mg/dL (0.3-1.2); Calc. Creatinine Clearance 81 mL/min (70-130); Calcium 7.4 mg/dL (7.8-10.44); Carbon Dioxide 18 mmol/L (23-31); Chloride 110 mmol/L (98-107); Estimated GFR 91; Globulin 2.5 g/dL (2.4-3.5); Glucose 97 mg/dL (83-110); Magnesium 1.7 mg/dL (1.6-2.6); Potassium 3.7 mmol/L (3.5-5.1); Protein, Total 5.2 g/dL (5.8-8.1); Sodium 137 mmol/L (136-145)
[2025-04-04 04:00] LABS: Band 36 % (5-11); Lymphocytes 5 % (21-51); Metamyelocyte 2 % (0-0); Monocytes 5 % (0-10); Neutrophil 53 % (42-75); Platelet Adequacy Comment Platelets Decreased; RBC Morphology Within Normal Limits; Smudge Cells 2.8 %
[2025-04-04] MEDS: metroNIDAZOLE 500 MG in Premix 1 BAG IVPB SCH (05:57)
[2025-04-04] MEDS: Pantoprazole 40 MG GRANULES PACKET PO SCH (09:00)
[2025-04-04] MEDS ORDERED: Atorvastatin Calcium 20 MG TAB PO SCH (09:00)
[2025-04-04] MEDS: Cefepime 2 GM in Sodium Chloride 0.9% 100 ML IVPB SCH (09:22)
[2025-04-04 09:24] LABS: Hemoglobin 9.2 g/dL (14.0-18.0)
[2025-04-04] MEDS: Lisinopril 10 MG TAB PO SCH (09:45)
[2025-04-04] MEDS: Pantoprazole 40 MG DR.TAB PO SCH (09:45)
[2025-04-04] MEDS: Cefepime 2 GM VIAL ONE (09:51)
[2025-04-04 15:09] LABS: Hematocrit 29.2 % (42.0-52.0); Hemoglobin 9.2 g/dL (14.0-18.0); Mean Corpuscular HGB CONC 31.5 g/dL (32.0-36.0); Mean Corpuscular Hemoglobin 27.6 pg (27.0-31.0); Mean Corpuscular Volume 87.7 fL (78.0-98.0); Mean Platelet Volume 9.4 fL (7.4-10.4); Platelet Count 34 10x3/uL (130-400); Red Blood Cell (RBC) Count 3.33 mill/uL (4.70-6.10); White Blood Cell (WBC) Count 2.54 10x3/uL (4.8-10.8)
[2025-04-04 15:40] LABS: Band 52 % (5-11); Burr Cells SLIGHT = 2-5 cells HPF (0-1); Large Platelets 1.9 % (0-5); Lymphocytes 5 % (21-51); Metamyelocyte 5 % (0-0); Monocytes 2 % (0-10); Myelocyte 1 % (0-0); Neutrophil 33 % (42-75); Platelet Adequacy Comment Platelets Decreased; Polychromasia SLIGHT = 2-3 cells HPF (0-2); Reactive Lymphocytes 3 % (0-10); Vacuoles MODERATE
[2025-04-04 15:50] VITALS: BP 109/67; TEMP 99.6
[2025-04-04] MEDS ORDERED: Cefepime 2 GM in Sodium Chloride 0.9% 100 ML IVPB SCH (17:00)
[2025-04-04] MEDS ORDERED: Atorvastatin Calcium 40 MG TAB PO SCH (21:00)
== END 2025-04-04 18:35 | disposition left against medical advice (07) | DRG 872 ==
LOC: ERS 17:53 → PCU 23:07
PROVIDERS: ADMIT Internal Medicine; ATTEND Internal Medicine
PROC: 3E03329 Introduction of Other Anti-infective into Peripheral Vein, Percutaneous Approach (ICD-10-PCS; principal; 2025-04-03)
PROC: 30233J1 Transfusion of Nonautologous Serum Albumin into Peripheral Vein, Percutaneous Approach (ICD-10-PCS; 2025-04-04)
DX: A41.9 Sepsis, unspecified organism (principal); D61.818 Other pancytopenia; K92.1 Melena; R18.8 Other ascites; I45.10 Unspecified right bundle-branch block; I25.10 Atherosclerotic heart disease of native coronary artery without angina pectoris; Z66 Do not resuscitate; E78.5 Hyperlipidemia, unspecified; K52.9 Noninfective gastroenteritis and colitis, unspecified; D70.9 Neutropenia, unspecified; R50.81 Fever presenting with conditions classified elsewhere; I10 Essential (primary) hypertension; E83.42 Hypomagnesemia; K74.60 Unspecified cirrhosis of liver; K76.89 Other specified diseases of liver; Z85.048 Personal history of other malignant neoplasm of rectum, rectosigmoid junction, and anus; Z92.21 Personal history of antineoplastic chemotherapy; Z53.29 Procedure and treatment not carried out because of patient's decision for other reasons
CPT/HCPCS: 36415; 71045; 74177; 80053; 81001; 83605; 83690; 83735; 83880; 84484; 85025; 85060; 87040; 87077; 87086; 87149; 87426; 93005; 94760; 96374; 96375; J0692; J3370; J3475; J7120; P9047; Q9967

== ENCOUNTER 2025-05-20 10:01 | Outpatient (CLI) | payer OTHER ==
[2025-05-20 10:48] LABS: Estimated GFR - POC 91.0
== END 2025-05-20 10:02 | disposition home or self-care (01) ==
LOC: SCSMRI 10:01
PROVIDERS: ATTEND Internal Medicine Gastroenterology
DX: C20 Malignant neoplasm of rectum (principal); K74.60 Unspecified cirrhosis of liver; K62.5 Hemorrhage of anus and rectum; R18.8 Other ascites
CPT/HCPCS: 36415; 72197; 82565

== ENCOUNTER 2025-08-28 12:49 | Outpatient (CLI) | payer OTHER | END 2025-08-28 12:50 | disposition home or self-care (01) | LOC: SCSMRI 12:49 | PROVIDERS: ATTEND Internal Medicine Gastroenterology | DX: K62.5 Hemorrhage of anus and rectum (principal); K74.60 Unspecified cirrhosis of liver; R18.8 Other ascites | CPT/HCPCS: 72197; 74183 ==